=== PATIENT | male | born 1970 | race African-American/Black ===

== ENCOUNTER 2017-06-09 19:02 | Emergency (ER) | payer OTHER ==
[2017-06-09 19:07] VITALS: BP 129/62; PULSE 56; TEMP 98; BMI 28.2
[2017-06-09] MEDS ORDERED: OXYCODONE/APAP 5/325MG COMBO TABLET PO ONE (19:55)
--- NOTE | 2017-06-09 19:56 | PDOC ---
History of Present Illness - General Chief Complaint: Injury Stated Complaint: FALL/INJURY Time Seen by Provider: 06/09/17 19:32 - History of Present Illness Initial Comments: 06/09/17 19:49 CHIEF COMPLAINT: laceration HISTORY OF PRESENT ILLNESS: 46 yo M with no PMH presents to fast track with laceration to L eyelid s/p fall. Patient states that he "was running and fell and hit my eye, and then it hurt." Patient denies any LOC and that the fall was witnessed "by his friends." Patient is a vague historian and could not specify where he was running and how he fell or what he fell on. PAST MEDICAL HISTORY: Denies past medical history FAMILY HISTORY: Denies SOCIAL HISTORY: Denies tobacco, alcohol, illicit drug use. SURGICAL HISTORY: Denies ALLERGIES: No known drug allergies REVIEW OF SYSTEMS General/Constitutional: Denies fever or chills. Denies weakness, weight change. HEENT: "I fell, and then my eye hurt." Denies change in vision. Denies ear pain or discharge. Denies sore throat. Cardiovascular: Denies chest pain or shortness of breath. Respiratory: Denies cough, wheezing, or hemoptysis. Gastrointestinal: Denies nausea, vomiting, diarrhea or constipation. Denies rectal bleeding. Genitourinary: Denies dysuria, frequency, or change in urination. Musculoskeletal: Denies joint or muscle swelling or pain. Denies neck or back pain. Skin and breasts: Denies rash or easy bruising. Neurologic: Denies headache, vertigo, loss of consciousness, or loss of sensation. PHYSICAL EXAM General Appearance: Well-appearing, appropriately dressed. No apparent distress. HEENT: Flap laceration to margin of L eyelid, mild abrasion to left cheek. EOMI , PERRLA, normal ENT inspection, normal voice, TMs normal, pharynx normal. No conjunctival pallor. No photophobia, scleral icterus. Neck: Supple. Trachea midline. No tenderness, rigidity, carotid bruit, stridor , lymphadenopathy, or thyromegaly. Respiratory/Chest: Lungs CTAB. Cardiovascular: RRR. S1, S2. Musculoskeletal/Extremities: Normal inspection. FROM of all extremities, normal capillary refill. Pelvis Stable. No CVA tenderness. No tenderness to extremities, pedal edema, swelling, erythema or deformity. Integumentary: See HEENT. Appropriate color, dry, warm. No cyanosis, erythema, jaundice or rash Neurologic: gelatin powder mixer II-XII intact. Fully oriented, alert. Appropriate mood/affect. Motor strength 5/5. No appreciable EOM palsy, facial droop or sensory deficit. 06/09/17 19:55 06/09/17 21:02 Past History - Past Medical History Allergies/Adverse Reactions: Allergies Allergy/AdvReac Type Severity Reaction Status Date / Time No Known Allergies Allergy Verified 06/09/17 19:06 Home Medications: Ambulatory Orders Bacitracin Ophthalmic Oint - 0.5 inch OS BID #1 tube 06/09/17 - Psycho/Social/Smoking Cessation Hx Suicidal Ideation: No Smoking History: Never smoked Information on smoking cessation initiated: No *Physical Exam - Vital Signs Last Vital Signs Temp Pulse Resp BP Pulse Ox 98 F 56 L 18 129/62 99 06/09/17 19:04 06/09/17 19:04 06/09/17 19:04 06/09/17 19:04 06/09/17 19:04 Medical Decision Making - Medical Decision Making 06/09/17 19:57 46 yo M with no PMH presents to fast track with laceration to L eyelid s/p fall. Patient prefers plastics to perform suture. Plastics on-call MD Guerrero notified. Patient states he received tetanus shot "a couple month ago." Lac repair performed by Dr. Guerrero. See consult note. Bacitracin ophtho oinment sent to pharm. PAtient to f/u with Dr. Guerrero as directed. *DC/Admit/Observation/Transfer Diagnosis at time of Disposition: Laceration, eyelid Qualifiers: Encounter type: initial encounter Laterality: left Qualified Code(s): S01.112A - Laceration without foreign body of left eyelid and periocular area, initial encounter - Discharge Dispostion Admit: No - Prescriptions Prescriptions: Bacitracin Ophthalmic Oint - 0.5 inch OS BID #1 tube - Referrals Referrals: Rodriguez Guerrero MD [Staff Physician] - - Patient Instructions Printed Discharge Instructions: DI for Laceration Repair -- Complex Suture Additional Instructions: Please use medication as prescribed. Follow up with Dr. Guerrero as directed. If you experience any swelling, redness, increased pain, or streaking from the eyelid, or you develop fever, nausea, vomiting, or chills, please return to the ER.
[2017-06-09] MEDS ORDERED: OXYCODONE/APAP 5/325MG COMBO TABLET ONE (19:58)
[2017-06-09] MEDS ORDERED: LIDOCAINE 1%/EPI 1:100000 (20 ML MULTI DOSE VIAL) IJ ONE (20:59)
[2017-06-09] MEDS ORDERED: LIDOCAINE 1%/EPI 1:100000 (50 ML MULTI DOSE VIAL) ONE (21:12)
--- NOTE | 2017-06-09 22:00 | CONSULT ---
Consult Consult Specialty:: Plastic Surgery Reason for Consultation:: Open Wound- Thru & Thru- Left Upper Eyelid - Smoking History Smoking history: Never smoked Home Medications - Allergies Allergies/Adverse Reactions: Allergies Allergy/AdvReac Type Severity Reaction Status Date / Time No Known Allergies Allergy Verified 06/09/17 19:06 - Home Medications Home Medications: Ambulatory Orders NK [No Known Home Medication] 06/09/17 Physical Exam Vital Signs: Vital Signs Temperature 98 F 06/09/17 19:04 Pulse Rate 56 L 06/09/17 19:04 Respiratory Rate 18 06/09/17 19:04 Blood Pressure 129/62 06/09/17 19:04 O2 Sat by Pulse Oximetry (%) 99 06/09/17 19:04 Assessment/Plan Patient s/p fall- presents with full thickness laceration of the left upper eyelid. Wears glasses 'mostly for reading'. PE: Able to see clearly but visual acuity not assessed due to discomfort. Thru & Thru laceration upper eyelid extending approximately 0.5cm onto lid. Wound edges uneven- lateral segment retracted. Procedure: Anesthetized with 1% Lidocaine with Epinephrine. Wound edges trimmed. Tarsus dissected and closed with 5-0 Clear Nylon. Lash line aligned and approximated using 7-0 nylon suture in two places to prevent rotation mal- alignment. Several 7-0 nylon sutures placed for skin. Eye irrigated with BSS. Bacitracin Ophthalmic applied. Patient to follow-up in office Saturday.
[2017-06-09] MEDS ORDERED: BACITRACIN 3.5 GM OPTHALMIC OINT TUBE OS ONE (22:08)
== END 2017-06-09 22:32 | disposition home or self-care (01) ==
LOC: JERFT 19:02
PROC: 08QPXZZ Repair Left Upper Eyelid, External Approach (ICD-10-PCS; principal; 2017-06-09)
DX: S01.112A Laceration without foreign body of left eyelid and periocular area, initial encounter (principal); W22.8XXA Striking against or struck by other objects, initial encounter; Y93.89 Activity, other specified; Y92.89 Other specified places as the place of occurrence of the external cause
CPT/HCPCS: 12011-25; 99281-25